=== PATIENT | female | born 1975 | race Caucasian/White ===

== ENCOUNTER → 2020-04-16 11:28 | Outpatient (CLI) | payer MEDICARE ==
[2020-04-16 12:16] LABS: ALKALINE PHOSPHATASE 111 U/L (30-120); ALT (SGPT) 13 U/L (10-68); CALC OSMOLALITY 273 mosm/kg (275-300); CALCIUM 8.4 mg/dL (8.5-10.1); CARBAMAZEPINE (TEGRETOL) 7.2 ug/mL (4.0-12.0); CARBON DIOXIDE 29.9 mmol/L (21.0-32.0); CHLORIDE - SERUM 104 mmol/L (98-107); CREATININE - SERUM 0.7 mg/dL (0.6-1.3); GLUCOSE 94 mg/dL (74-106); POTASSIUM - SERUM 3.9 mmol/L (3.5-5.1); SODIUM 138 mmol/L (136-145); UREA NITROGEN 8 mg/dL (7-18); eGFR NON AFRICAN AMERICAN > 90 mL/min (90-120)
[2020-04-16 12:32] LABS: BASOPHILS 0.4 % (0-2); EOSINOPHILS 5.3 % (0-7); HEMATOCRIT 37.3 % (36.0-48.0); HEMOGLOBIN 12.5 g/dL (12-16); LYMPHOCYTES 34.2 % (15-50); MCH 31.6 pg (26.0-34.0); MCHC 33.5 g/dL (31.0-37.0); MCV 94.4 fL (80.0-100.0); MONOCYTES 4.3 % (2-11); NEUTROPHILS 55.8 % (40-80); PLATELET COUNT 226 10x3/uL (130-400); RBC 3.95 10x6/uL (4.00-5.40); RDW 12.9 % (11.5-14.5); WBC 5.6 10x3/uL (4.8-10.8)
== END | disposition home or self-care (01) ==
LOC: D.LAB 11:28
PROVIDERS: ATTEND Psychiatry & Neurology Neurology
DX: R56.9 Unspecified convulsions (principal)